=== PATIENT | female | born 1990 | race Caucasian/White ===

== ENCOUNTER → 2016-08-22 16:46 | Observation (INO) ==
--- NOTE | 2016-08-22 16:33 | Discharge Summary ---
Date of Encounter: 08/22/16 Time of Encounter: 16:33 - Discharge Diagnosis (1) 39 weeks gestation of Priority: Primary Status: Acute Comments: admit for labor evaluation (2) False labor Priority: Secondary Status: Acute Comments: discharge home follow up as scheduled - Discharge Medications Home Medications: Caplet 08/22/16 [History] Allergies/Adverse Reactions: Allergies Penicillins [PCN] Allergy (Verified 09/28/15 04:09) See Comments Date of admission: 08/22/16 14:33 Primary care physician: Samuel Newton MD Discharging clinician: Raquel Landaverde Anticipated date of discharge: 08/22/16 - Patient Status Disposition: Home, Self-Care Condition: Good Functional capacity at discharge: independent ambulation - Discharge Instructions Follow Up With: Samuel Newton MD [Primary Care Provider] - Soledad Chavez MD [Partnered Physician] - Additional Instructions: LABOR AND DELIVERY DISCHARGE INSTRUCTIONS Return to L&D on 08/24/2015 for labor induction. Signs and Symptoms to be Reported to your Doctor Immediately: * Sudden gush, continuous or intermittent lead of fluid from vagina (note the time of gush and color of fluid) * Onset of bright red vaginal bleeding with or without pain (if you had a vaginal exam during this visit you may notice some dark red spotting. This is normal.) * Contractions that are 5 minutes apart (from the beginning of one contraction to the beginning of the next) and last 45-60 seonds; contractions that you can no longer walk, talk or laugh through. * A change in the baby's activity. This could be an increase or decrease in activity. * Severe headache which does not go away with tylenol. * Sudden swelling in the face, hands, arms and/or legs. * Upper abdominal pain - sometimes associated with heartburn or nausea and is not relieved by Maalox, Mylanta or Tums. * Kick Counts __ One hour after a meal, lay down on one side in a quiet place. Count the number of time the baby moves during an hour. If less than 6 movements, notify your physician Diet: *Force fluids, 8 to 10 tall glasses of fluid per day - may include popsicles and jello *Limit caffeine - this includes chocolate, coffee, tea, any soft drink containing such as all ivan, Rogerio Yellow and Mountain Dew - Diet and Activity Activity: increase activity as tolerated Diet: regular diet Hospital Course SPANISH INSTRUCTOR Time Attestation: Total time spent providing and/or coordinating discharge services: Exam - Constitutional General appearance IM: A&O X 3, pleasant, answers questions appropriately - Respiratory Respiratory exam: Present: CTAB - Cardiovascular Cardiovascular exam IM: Present: RRR, +S1, +S2 - GI/Abdominal GI/Abdominal exam IM: normal bowel sounds - Other Additional findings: FHR 145 bpm moderate variability +15x15 accels no decels noted. Cat 1 tracing. - VTE Reasons for not Prescribing Prophylaxis: Treatment not Indicated - Low risk for VTE
== END | disposition home or self-care (01) ==
LOC: 1NENULAB
PROVIDERS: ADMIT Obstetrics & Gynecology; ATTEND Obstetrics & Gynecology

== ENCOUNTER 2016-08-24 06:00 | Inpatient (IN) ==
[2016-08-24] MEDS ORDERED: miSOPROStol 25 MCG TABLET PO PRN (06:28)
[2016-08-24] MEDS ORDERED: Metoclopramide 10 MG/2 ML VIAL IVP PRN (06:31)
[2016-08-24] MEDS ORDERED: Famotidine 20 MG/2 ML VIAL IVP PRN (06:31)
--- NOTE | 2016-08-24 06:40 | OB/GYN History & Physical ---
Date of Encounter: 08/24/16 History of Present Illness HPI: Ms. Holt is a 26 year old female Past Med Surg Social Fam HX - Past Medical History Medical history: no medical history Psychiatric history: anxiety - Past Surgical History Surgical History: no surgical history - Social History Smoking Status: Former smoker Smokeless Tobacco Status: No Alcohol use: none Drug use: none - Family History Mother Adopted: No Living Status: Still Living Hx Family Cardiac Disorders: No Hx Family Respiratory Disorders: No Hx Family Cancer: No Hx Family GI Disorders: No Hx Family Endocrine Disorder: No Hx Family Neuromuscular Disorders: No Hx Family Neurologic Disorders: No Hx Family HEENT Disorders: No Hx Family Autoimmune Disorders: No Medications and Allergies Caplet 08/22/16 [History] Allergies Penicillins [PCN] Allergy (Verified 09/28/15 04:09) See Comments Results All other labs normal. - VTE Reasons for not Prescribing Prophylaxis: Treatment not Indicated - Low risk for VTE
[2016-08-24 06:54] LABS: Eosinophils # 0.1 K/mcL (0.0-0.6)
[2016-08-24] MEDS: Ringers Solution, Lactated 1,000 ML IVC SCH ×2 (07:04→23:42)
--- NOTE | 2016-08-24 07:09 | OB/GYN History & Physical ---
Date of Encounter: 08/24/16 Time of Encounter: 07:02 Assessment and Plan (1) Elective induction of labor planned Current visit: Yes Status: Acute -Administer Cytotec 25mcg -Continue to monitor (2) 39 weeks gestation of Current visit: No Status: Acute (3) Anemia affecting fourth Current visit: Yes Status: Chronic Patient non compliant with vitamins and supplements. Will monitor for s/sx. She is likely chronic and will do well with the delivery. History of Present Illness Chief complaint: induction HPI: Ms. Holt is a 26F, , 39w being admitted for an induction and vaginal delivery. Today, patient only complains of anxiety. States that she has had no complications with the , only some mild nausea or vomiting. She is having some brown vaginal discharge. Negative for GBS. Denies smoking, drinking or drug use during . Did not take medication. Family history positive for mother having WPW, otherwise negative. She is . The child will be adopted, adopted parents present in the room. Past Med Surg Social Fam HX - Past Medical History Medical history: asthma Psychiatric history: anxiety - Past Surgical History Surgical History: no surgical history - Social History Smoking Status: Former smoker Smokeless Tobacco Status: No Alcohol use: none Drug use: none - Family History Mother History Unknown: Yes Adopted: No Family Member Ethnicity: Non- Living Status: Still Living Hx Family Cardiac Disorders: Yes (anemia) Hx Family Respiratory Disorders: No Hx Family Cancer: No Hx Family GI Disorders: No Hx Family Endocrine Disorder: No Hx Family Neuromuscular Disorders: No Hx Family Neurologic Disorders: No Hx Family HEENT Disorders: No Hx Family Autoimmune Disorders: No Hx Family Medical Disorders: Yes (wpw) Obstetrical History - Pregnancies : 4 Para: 2 Medications and Allergies No Known Home Drugs 08/24/16 [History] Allergies Penicillins [PCN] Allergy (Verified 08/24/16 06:48) See Comments Review of System OB - Cardiovascular Cardiovascular: no chest pain, no irregular heart rhythm, no palpitations - Respiratory Respiratory: no cough - Gastrointestinal Gastrointestinal: no abdominal pain, no nausea, no vomiting Exam - Constitutional Constitutional: well developed, well nourished, no acute distress, average body habitus - Lungs Respiratory exam: CTAB - Cardiovascular Cardiovascular exam: RRR Results Result Diagrams: 08/24/16 06:36 Abnormal lab results RBC 2.09 M/mcL (3.82-4.97) L 08/24/16 06:36 Hgb 7.3 g/dL (11.5-15.4) L 08/24/16 06:36 Hct 22.4 % (35.3-44.9) L 08/24/16 06:36 MCV 107.2 fL (83.0-100.0) H 08/24/16 06:36 MCH 34.9 pg (28.0-33.3) H 08/24/16 06:36 All other labs normal. - VTE Reasons for not Prescribing Prophylaxis: Treatment not Indicated - Low risk for VTE - Attending Attestation I examined this patient and my medical decision-making was reviewed with the Resident Physician. I agree with the documented findings, disposition and treatment plan as described except to the extent set forth below. Dixie De La Torre DO
[2016-08-24] MEDS ORDERED: EPHEDrine 50 MG/ML VIAL IVP PRN (10:39)
[2016-08-24] MEDS ORDERED: Bupivacaine-MPF 0.25% 10 ML VIAL EP ONE (10:39)
[2016-08-24] MEDS ORDERED: *HR* FentaNYL (PF) 100 MCG/2 ML VIAL EP ONE (10:39)
[2016-08-24] MEDS ORDERED: Naloxone 0.4 MG/ML INJ IVP PRN (10:39)
[2016-08-24] MEDS ORDERED: Ondansetron 4 MG/2 ML VIAL IVP PRN (10:39)
--- NOTE | 2016-08-24 10:42 | Anesthesia Evaluation PreOp ---
Date of Encounter: 08/24/16 Time of Encounter: 09:20 - Past History Planned Operation: ANTONIETTA Cardiac History: Denies any Significant Hx Pulmonary History: Former smoker (Quit with , smokes 1/2 pk/day x 6year ), Asthma PROMOTIONS SPECIALIST History: Denies Any Significant HX Other Medical History: GERD Anesthesia History: No Prior Anesthetic Complications, Past Anesthesia (epidural ) : Yes Alcohol Use: none Drug use: none Medications and Allergies No Known Home Drugs 08/24/16 [History] Allergies Penicillins [PCN] Allergy (Verified 08/24/16 06:48) See Comments - Meds/Allergy Pre-op Review Medications Reviewed: Yes Allergies Reviewed: Yes Beta Blockers on Current Med List: No Anesthesia Results - Labs 08/24/16 06:36 Anesthesia Exam Vital Signs Temperature 98.7 F 08/24/16 07:35 Pulse Rate 87 08/24/16 07:35 Respiratory Rate 19 08/24/16 07:35 Blood Pressure 111/76 08/24/16 07:35 Temperature 98.7 F 08/24/16 07:35 Pulse Rate 87 08/24/16 07:35 Respiratory Rate 19 08/24/16 07:35 Blood Pressure 111/76 08/24/16 07:35 Height: 5'1" Weight: 69kg NPO (# of Hours): 6 Pain Scale: 0 Pain Scale Used: Numeric (1 - 10) - HEENT Pupil (Motor): Pupils equal Mallampati: II Teeth: Normal Oral Opening: Greater than 3 - PROMOTIONS SPECIALIST LOC: Oriented PROMOTIONS SPECIALIST Motor: Normal RUE, Normal LUE, Normal RLE, Normal LLE, Normal Face PROMOTIONS SPECIALIST Sensory: Normal: RUE, LUE, RLE, LLE, Face - Cardiac Rhythm: Regular Murmur: None JVD: No Carotid Bruit: No - Pulmonary Breath Sounds: bilateral Clear Respiratory Effort: Symmetrical Anesthesia Assess/Plan ASA Score: 2 Modified [place] Scale for Level of Consciousness: Cooperative, oriented, and tranquil Anesthetic Plan: Regional Autologous Blood: No Monitoring Plan: Standard Monitors Recovery Plan: Other
[2016-08-24] MEDS ORDERED: Epidural Premix (fent/bupiv) 110 ML EP SCH (10:45)
[2016-08-24] MEDS ORDERED: Bupivacaine-MPF 0.25% 10 ML VIAL ONE (11:10)
[2016-08-24] MEDS ORDERED: *HR* FentaNYL (PF) 100 MCG/2 ML VIAL ONE (11:10)
[2016-08-24] MEDS ORDERED: Epidural Premix (fent/bupiv) 110 ML EP ONE ×2 (11:11→23:34)
[2016-08-24] MEDS ORDERED: *HR* Phenylephrine 10 MG/ML VIAL ONE (12:04)
[2016-08-24] MEDS ORDERED: EPHEDrine 50 MG/ML VIAL ONE (12:07)
--- NOTE | 2016-08-24 12:23 | Anesthesia Procedures ---
Date of Encounter: 08/24/16 Time of Encounter: 11:38 Procedures: Anesthesia - Epidural/Spinal Patient ID/Chart reviewed: Yes Patient examined: Yes OB Eval: Gestational age: 39 OB Eval: : 4 OB Eval: Hx Para: 2 OB Eval: Dilated at (cm): 5 OB Eval: Contractions: Non-stressed pattern Consent Obtained: Yes Supplemental Oxygen: None/Room Air Site Prep: Aseptic Technique, Sterile prep and drape, Povidone-Iodine 1% Patient position: upright Local Anesthetic: Lidocaine 1% Amount of Local Anesthetic used: 3 Touhy Needle Gauge: 18 Touhy Needle Depth (cm): 4 Catheter Depth at Skin (cm): 11 Test Dose (1.5% Lido + Epi): Volume given (mls): 3 Test Dose Result: Negative Loading Dose: 0.25% Marcaine (mls): 10 Loading Dose: Fentanyl (mcg): 100 Loading Dose Administered: Thru Catheter Infusion Med: 0.125% Bupivacaine w/ 2 mcg/ml Fentanyl Infusion Rate (mls/hr): 14 Interspace Used: L4-L5 Loss of Resistance (ANAIS): Yes Blood: No CSF: No Paresthesia: No Procedure: ANTONIETTA placed in upright position without any immediate noted complications. VSS throughout placement. BP decreased post bolus. Treated with ephedrine 5mg, neosynephrine 100mcg. Pt to right side with O2. Pt BP normalized along with FHT. Vitals + FHT's: 1138 BP 112/69 P 88 R 16 1200 BP 89/54 R 14 P 72
[2016-08-24] MEDS ORDERED: 0.9 % Sodium Chloride 1,000 ML ONE (14:13)
[2016-08-24] MEDS ORDERED: 0.9 % Sodium Chloride 500 ML ONE (14:34)
--- NOTE | 2016-08-24 16:22 | OB Labor Progress Note ---
Date of Encounter: 08/24/16 Time of Encounter: 16:20 Labor Progress Note - Subjective Subjective: Pt resting in bed on arrival in room, not feeling contraction and comfortable with epidural. After AROM, IUPC and repositioning pt complains of chest "pressure" - Vital Signs Vital Signs: HR ranging from 120-160 via maternal telemetry - Cervix Cervix: 5/75/-2 - Heart Tones Heart Tones: 145/+accels/-decels - [place]: CTX iupc 3-5 minuts apart - Interventions Interventions: AROM, small amount clear fluid, IUPC placed, Pt repositioned. - Plan Plan: Pt evaluated by Laurie Landaverde CNM, Jimmy Contreras CNM, Dr. De La Torre updated by phone. Okay for 12 lead EKG, pt with history of anxiety. EKG ordered. Will monitor. Pt also evaluated by SPEED WINDER. Will reassess on completion of transfusion.
[2016-08-24] MEDS ORDERED: miSOPROStol 100 MCG TABLET PO STA (18:06)
[2016-08-25] MEDS ORDERED: Oxytocin 20 units/ LR 1000 mL 20 UNIT/1,000 ML BAG IVC SCH (00:15)
--- NOTE | 2016-08-25 03:16 | OB/GYN Procedure Note ---
Delivery - Delivery Date: 08/25/16 Provider: Dixie De La Torre Intrapartum events: none Delivery induction: AROM, oxytocin, misoprostol Delivery monitor: external FHT, external uterine, internal uterine Anesthesia: epidural Estimated Blood Loss: 100 - Infant (s) Infant A Infant Delivery Date: 08/25/16 Infant Delivery Time: 03:03 Presentation: vertex Position: AMY Route of delivery: Gender: Female Viability: Viable Pounds: 7 Ounces: 3 Weight Gram: 3.255 kg at 1 minute: 8 at 5 mins: 9 Shoulder Dystocia: not encountered Specimens collected: cord blood Placenta: spontaneous Cord: 3 umbilical vessels - Repair Episiotomy: none Laceration Description: None - Complications Delivery complications: none Delivery comments: Called to room with patient complete and +2 station. Under maternal effort she delivered a viable female weighing 7 lbs. 3 oz. and Apgars 8 and 9 at one and 5 minutes respectively over an intact perineum. Following delivery of the head the infant was bulb suctioned. There was no nuchal cord or shoulder dystocia encountered. The placenta delivered spontaneously, complete, and intact with a three-vessel cord. There were no labial, vaginal, or cervical lacerations on exam. Mother is recovering in the LDR in stable condition. Infant was taken to another room, per mother's request, for recovery also in stable condition. - Disposition Mom disposition: stable in LDR [place] disposition: stable in LDR
[2016-08-25] MEDS ORDERED: Acetaminophen 325 MG TABLET PO PRN (03:59)
[2016-08-25] MEDS ORDERED: Oxytocin 20 units/ LR 1000 mL 20 UNIT/1,000 ML BAG IVC ONE (03:59)
[2016-08-25] MEDS ORDERED: Ibuprofen 600 MG TABLET PO PRN (03:59)
[2016-08-25] MEDS ORDERED: Oxytocin 20 units/ LR 1000 mL 20 UNIT/1,000 ML BAG IV SCH (03:59)
[2016-08-25] MEDS ORDERED: Prenatal Vit/FA 1 EACH TABLET PO SCH (09:00)
[2016-08-25 11:17] LABS: Hematocrit 34.1 % (35.3-44.9); Hemoglobin 10.8 g/dL (11.5-15.4); Mean Corpuscular HGB Conc 31.7 g/dL (31.6-35.5); Mean Corpuscular Hemoglobin 26.9 pg (28.0-33.3); Mean Corpuscular Volume 84.8 fL (83.0-100.0); Red Blood Count 4.02 M/mcL (3.82-4.97); Red Cell Distribution Width 13.2 % (11.5-14.5)
[2016-08-25 11:18] LABS: Immature Granulocytes % 0.6 % (0-4); Lymphocytes % 26.4 %; Platelet Count 191 K/mcL (140-400)
[2016-08-25 11:19] LABS: Basophils % 0.4 %; Eosinophils % 0.7 %; Monocytes # 0.6 K/mcL (0.0-1.3); Monocytes % 8.9 %; Neutrophils # 4.4 K/mcL (1.6-8.9)
[2016-08-25 11:22] LABS: Lymphocytes # 1.8 K/mcL (0.6-4.6)
[2016-08-25 11:24] LABS: Basophils % 0.1 %; Hematocrit 35.8 % (35.3-44.9); Hemoglobin 11.8 g/dL (11.5-15.4); Immature Granulocytes % 0.6 % (0-4); Immature Platelets 11.5 % (1.1-6.1); Lymphocytes # 0.9 K/mcL (0.6-4.6); Lymphocytes % 4.8 %; Mean Corpuscular Hemoglobin 27.8 pg (28.0-33.3); Mean Corpuscular Volume 84.2 fL (83.0-100.0); Mean Platelet Volume 11.8 fL (9.4-12.4); Monocytes % 4.9 %; Neutrophils # 17.6 K/mcL (1.6-8.9); Platelet Count 162 K/mcL (140-400); Red Blood Count 4.25 M/mcL (3.82-4.97); Red Cell Distribution Width 13.1 % (11.5-14.5); Segmented Neutrophils % 89.6 %
--- NOTE | 2016-08-25 19:36 | Electrocardiograph Report ---
[facility] [place] Test Date: 2016-08-24 Pat Name: Dennise Holt Department: 101 Room: [id number] Gender: Certified Medicine Aide: : 1990 Requested By: Josue Gates Order Number: [id number] Reading MD: Jana Daugherty DO Measurements Intervals [place] Rate: 86 P: 39 AK: 126 QRS: 66 QRSD: 78 T: 28 QT: 320 QTc: 363 Interpretive Statements SINUS RHYTHM POSSIBLE RIGHT VENTRICULAR CONDUCTION DELAY Electronically Signed On 08-25-2016 19:34:14 EST by Jana Daugherty DO
--- NOTE | 2016-08-26 08:22 | Discharge Summary ---
Date of Encounter: 08/26/16 Time of Encounter: 08:19 - Discharge Diagnosis (1) Vaginal delivery Priority: Primary Status: Acute Comments: Continue routine care discharge home today follow up in 4-[address] Chavez - Discharge Medications Home Medications: Vit/FA 1 each PO DAILY tablet 08/26/16 [Rx] Allergies/Adverse Reactions: Allergies Penicillins [PCN] Allergy (Verified 08/24/16 06:48) See Comments Data Procedures and tests throughout hospitalization: Laboratory Tests 08/24/16 08/24/16 08/25/16 06:36 13:08 10:14 WBC 7.0 19.6 H D RBC 4.02 4.25 Hgb 10.8 L 11.8 Hct 34.1 L 35.8 MCV 84.8 84.2 MCH 26.9 L 27.8 L MCHC 31.7 33.0 RDW 13.2 13.1 Plt Count 191 162 MPV 13.0 H 11.8 Immature Gran % 0.6 0.6 Seg Neutrophils % 63.0 89.6 Lymphocytes % 26.4 4.8 Monocytes % 8.9 4.9 Eosinophils % 0.7 0.0 Basophils % 0.4 0.1 Neutrophils # 4.4 17.6 H Lymphocytes # 1.8 0.9 Monocytes # 0.6 1.0 Eosinophils # 0.1 0.0 Basophils # 0.0 0.0 Immature Plt Fraction 11.5 H Blood Type B POSITIVE Antibody Screen NEGATIVE Crossmatch See Detail Labs on day of discharge: Labs from last 24 hours 08/25/16 08/24/16 10:14 06:36 WBC 19.6 H D 7.0 RBC 4.25 4.02 Hgb 11.8 10.8 L Hct 35.8 34.1 L MCV 84.2 84.8 MCH 27.8 L 26.9 L MCHC 33.0 31.7 RDW 13.1 13.2 Plt Count 162 191 MPV 11.8 13.0 H Immature Gran % 0.6 0.6 Seg Neutrophils % 89.6 63.0 Lymphocytes % 4.8 26.4 Monocytes % 4.9 8.9 Eosinophils % 0.0 0.7 Basophils % 0.1 0.4 Neutrophils # 17.6 H 4.4 Lymphocytes # 0.9 1.8 Monocytes # 1.0 0.6 Eosinophils # 0.0 0.1 Basophils # 0.0 0.0 Immature Plt Fraction 11.5 H Date of admission: 08/24/16 06:11 Primary care physician: Samuel Newton MD Consults: 08/25/16 03:59 Consult to Homicide Detective [CONS] Routine Reason for SW Consult: adoption Discharging clinician: Raquel Landaverde Anticipated date of discharge: 08/26/16 - Patient Status Disposition: Home, Self-Care Condition: Good Functional capacity at discharge: independent ambulation - Discharge Instructions Follow Up With: Samuel Newton MD [Primary Care Provider] - Soledad Chavez MD [Partnered Physician] - - Diet and Activity Activity: increase activity as tolerated Diet: regular diet Hospital Course Reason for admission: induction of labor Delivery: Episiotomy: none Laceration: none Other procedures: none complications: none Discharge diagnosis: IUP at term delivered [place] baby: female ( adopted out, bottle feeding) Time Attestation: Total time spent providing and/or coordinating discharge services: Time Spent: Less than 30 minutes Exam - Constitutional Vitals: Temp Pulse Resp BP Pulse Ox 97.6 F 66 16 105/71 98 08/26/16 00:00 08/26/16 00:00 08/26/16 00:00 08/26/16 00:00 08/26/16 00:00 General appearance IM: A&O X 3, pleasant, answers questions appropriately - Respiratory Respiratory exam: Present: CTAB - Cardiovascular Cardiovascular exam IM: Present: RRR, +S1, +S2 - GI/Abdominal GI/Abdominal exam IM: normal bowel sounds Additional comments: +BM - Uterine Tone: Firm Uterus Position: 2 Fingers Below Umbilicus, Midline - Extremities Exam Extremities exam IM: Present: full ROM, normal capillary refill, normal inspection - Neurological Exam Neurological exam: alert, oriented X3, reflexes normal
[2016-08-26 08:25] VITALS: BP 117/73
== END 2016-08-26 09:03 | disposition home or self-care (01) | DRG 560 ==
LOC: 1NENULAB 06:11 → 1NENUOBS 08-25 05:31
PROVIDERS: ADMIT Obstetrics & Gynecology; ATTEND Obstetrics & Gynecology

== ENCOUNTER → 2021-10-29 23:58 | Observation (INO) ==
[2021-10-29 22:17] LABS: Bacteria,Urine Few per hpf (None-Few); Bilirubin,Urine Negative (Negative); Blood,Urine Negative (Negative); Clarity,Urine Clear (Clear); Color,Urine Colorless (Yellow); Glucose,Urine (UA) Normal (Normal); Ketones,Urine Negative (Negative); Leukocyte Esterase,Urine Small (Negative); Nitrite,Urine Negative (Negative); Protein,Urine Negative (Neg-Trace); RBC,Urine 0-3 per hpf (0-3); Specific Gravity,Urine 1.007 (1.010-1.025); Squamous Epithelial Cell,Urine Few per hpf (None-Few); Urobilinogen,Urine Normal (Normal); WBC,Urine 0-3 per hpf (0-3)
[~2021-10-29 23:58] MED LIST: Ringers Solution, Lactated 1,000 ML IVC ONE; Ringers Solution, Lactated 1,000 ML ONE
[2021-10-30 00:48] LABS: Candida DNA Not Detected (Not Detect); Gardnerella DNA Not Detected (Not Detect); Trichomonas DNA Not Detected (Not Detect)
== END | disposition home or self-care (01) ==
LOC: 1NENULAB
PROVIDERS: ADMIT Advanced Practice Midwife; ATTEND Advanced Practice Midwife

== ENCOUNTER 2021-11-29 23:36 | Inpatient (IN) ==
[~2021-11-29 23:36] MED LIST changes: +*HR* Nalbuphine 10 MG/ML AMPUL IV PRN; +Azithromycin 500 MG in 0.9 % Sodium Chloride 250 ML IVPB PRN; +Famotidine 20 MG/2 ML VIAL IVP PRN; +Metoclopramide 10 MG/2 ML VIAL IVP PRN; +Naloxone 0.4 MG/ML INJ IVP PRN; +Ondansetron 4 MG/2 ML VIAL IVP PRN; -Ringers Solution, Lactated 1,000 ML IVC ONE; -Ringers Solution, Lactated 1,000 ML ONE
[2021-11-29] MEDS ORDERED: Ringers Solution, Lactated 1,000 ML IVC SCH (23:45)
[2021-11-30 00:42] LABS: Basophils % 0.3 %; Eosinophils # 0.1 K/mcL (0.0-0.6); Eosinophils % 0.7 %; Hematocrit 36.9 % (35.3-44.9); Hemoglobin 12.7 g/dL (11.5-15.4); Immature Granulocytes % 0.7 % (0-4); Lymphocytes # 2.5 K/mcL (0.6-4.6); Lymphocytes % 25.8 %; Mean Corpuscular HGB Conc 34.4 g/dL (31.6-35.5); Mean Corpuscular Hemoglobin 32.2 pg (28.0-33.3); Mean Corpuscular Volume 93.4 fL (83.0-100.0); Mean Platelet Volume 11.3 fL (9.4-12.4); Monocytes # 0.7 K/mcL (0.0-1.3); Monocytes % 7.4 %; Neutrophils # 6.4 K/mcL (1.6-8.9); Platelet Count 149 K/mcL (140-400); Red Blood Count 3.95 M/mcL (3.82-4.97); Red Cell Distribution Width 13.1 % (11.5-14.5); Segmented Neutrophils % 65.1 %; White Blood Count 9.9 K/mcL (4.3-11.1)
[2021-11-30 00:49] LABS: Amphetamine Screen,Urine Negative ng/mL (Cutoff=1000); Barbiturate Screen,Urine Negative ng/mL (Cutoff=200); Benzodiazepines Screen,Urine Negative ng/mL (Cutoff=200); Cannabinoid Screen,Urine Negative ng/mL (Cutoff = 50); Cocaine Screen,Urine Negative ng/mL (Cutoff= 300); Opiate Screen,Urine Negative ng/mL (Cutoff=300); Phencyclidine Screen,Urine Negative ng/mL (Cutoff=25)
[2021-11-30] MEDS ORDERED: EPHEDrine 50 MG/ML VIAL IVP PRN (01:06)
[2021-11-30] MEDS ORDERED: Epidural Premix (fent/bupiv) 110 ML EP ONE (01:14)
[2021-11-30 01:15] LABS: Influenza A PCR Negative (Negative); Influenza B PCR Negative (Negative); Resp. Syncytial Virus PCR Negative (Negative); SARS-CoV-2 by PCR (In House) Negative (Negative)
[2021-11-30] MEDS ORDERED: Epidural Premix (fent/bupiv) 110 ML EP SCH (01:15)
[2021-11-30] MEDS ORDERED: Oxytocin 30 UNIT/503 ML BAG IVC SCH ×3 (04:15→19:15)
[2021-11-30] MEDS ORDERED: *HR* FentaNYL (PF) 100 MCG/2 ML VIAL EP ONE (11:22)
[2021-11-30] MEDS ORDERED: Ropivacaine/PF 0.2% 20 ML VIAL EP ONE (11:22)
[2021-11-30] MEDS ORDERED: Measles/Mumps/Rubella Vacc 0.5 ML VIAL SQ PRN (19:05)
[2021-11-30] MEDS ORDERED: Rho Immune Globulin 1,500 UNIT SYRINGE IM PRN (19:05)
[2021-11-30] MEDS ORDERED: Ondansetron ODT 4 MG TAB.RAPDIS SL PRN (19:05)
[2021-11-30] MEDS ORDERED: Lanolin 7 G OINT...G. TP PRN (19:05)
[2021-11-30] MEDS ORDERED: Benzocaine/Menthol 56 GM AEROSOL SPRAY TP PRN (19:05)
[2021-11-30 20:41] VITALS: O2SAT 97
[2021-12-01] MEDS: Ibuprofen 600 MG TABLET PO SCH ×3 (00:04→11:49)
[2021-12-01] MEDS: Acetaminophen 325 MG TABLET PO SCH ×3 (00:04→11:49)
[2021-12-01 04:16] LABS: Basophils % 0.2 %; Eosinophils % 0.2 %; Hematocrit 34.7 % (35.3-44.9); Hemoglobin 11.6 g/dL (11.5-15.4); Immature Granulocytes % 0.6 % (0-4); Lymphocytes # 1.9 K/mcL (0.6-4.6); Lymphocytes % 16.1 %; Mean Corpuscular HGB Conc 33.4 g/dL (31.6-35.5); Mean Corpuscular Hemoglobin 31.7 pg (28.0-33.3); Mean Corpuscular Volume 94.8 fL (83.0-100.0); Mean Platelet Volume 11.6 fL (9.4-12.4); Monocytes # 0.7 K/mcL (0.0-1.3); Monocytes % 5.8 %; Platelet Count 144 K/mcL (140-400); Red Blood Count 3.66 M/mcL (3.82-4.97); Segmented Neutrophils % 77.1 %; White Blood Count 11.7 K/mcL (4.3-11.1)
[2021-12-01] MEDS ORDERED: Prenatal Vit/FA 1 EACH TABLET PO SCH (09:00)
[2021-12-01 16:16] VITALS: BP 115/80; PULSE 79; TEMP 97.8
== END 2021-12-01 17:40 | disposition home or self-care (01) | DRG 560 ==
LOC: 1NENULAB → 1NENUOBS 11-30 20:32
PROVIDERS: ADMIT Obstetrics & Gynecology; ATTEND Obstetrics & Gynecology